=== PATIENT | female | born 1990 | race African-American/Black ===

== ENCOUNTER 2020-11-25 11:06 | Observation (INO) | payer MEDICAID ==
[~2020-11-25] VITALS: Ht 162.6 cm; Wt 54.4 kg
[2020-11-25] MEDS ORDERED: PNV1TABL50 PO (11:38)
[2020-11-25] MEDS ORDERED: DEXT 5%/LACTATED RINGERS 1,000 ML IV SCH (12:00)
[2020-11-25 12:47] LABS: CLARITY URINE CLEAR (CLEAR); COLOR URINE YELLOW (YELLOW); KETONES URINE NEGATIVE (NEGATIVE); LEUKOCYTE ESTERASE URINE 1+ (NEGATIVE); NITRITE URINE NEGATIVE (NEGATIVE); OCCULT BLOOD URINE NEGATIVE (NEGATIVE); PH URINE 8.5 (4.5-8.0); PROTEIN URINE TRACE (NEGATIVE); SPECIFIC GRAVITY URINE 1.023 (1.005-1.030)
[2020-11-25 13:02] LABS: BASOPHILS % 0.6 % (0.0-2.0); HEMATOCRIT. 32.5 % (36.0-48.0); HEMOGLOBIN. 10.8 g/dL (12.0-16.0); LYMPHOCYTES % 13.2 % (20.0-50.0); MEAN CORPUSCULAR HEMOGLOBIN 28.7 pg (28.0-32.0); MEAN CORPUSCULAR VOLUME 86.4 fL (81.0-99.0); MEAN PLATELET VOLUME 7.9 fl (7.4-10.4); MONOCYTES % 3.5 % (2.0-8.0); NEUTROPHILS % 81.7 % (40.0-76.0); PLATELET 328 x1000/uL (130-400); RED BLOOD CELL COUNT 3.76 mill/uL (4.2-5.4); RED CELL DISTRIBUTION WIDTH 14.6 % (11.6-14.6)
[2020-11-25] MEDS ORDERED: CEFAZOLIN 2,000 MG in DEXT 5% WATER 100 ML IV SCH (14:00)
== END 2020-11-25 14:45 | disposition home or self-care (01) ==
LOC: 8 EST LDRP 11:06
PROVIDERS: ADMIT Obstetrics & Gynecology; ATTEND Obstetrics & Gynecology
DX: O46.92 Antepartum hemorrhage, unspecified, second trimester (principal); Z3A.22 22 weeks gestation of pregnancy
CPT/HCPCS: 36415; 59025; 76805; 81003; 85025; 96361; 96365; G0378; J0690; J7060; 96360; 99281

== ENCOUNTER 2021-03-20 22:24 | Observation (INO) | payer MEDICAID, OTHER ==
[~2021-03-20] VITALS: Ht 162.6 cm; Wt 62.6 kg
[~2021-03-20 22:24] MED LIST: PNV1TABL50 PO
== END 2021-03-21 00:10 | disposition home or self-care (01) ==
LOC: 8 EST LDRP 22:24
PROVIDERS: ADMIT Specialist; ATTEND Specialist
DX: O62.9 Abnormality of forces of labor, unspecified (principal); Z3A.39 39 weeks gestation of pregnancy
CPT/HCPCS: 59025; G0378; 99281

== ENCOUNTER 2021-03-29 11:09 | Emergency (ER) | payer OTHER ==
[~2021-03-29] VITALS: Ht 162.6 cm; Wt 59.0 kg
[2021-03-29] MEDS ORDERED: ACETAMINOPHEN WITH CODEINE 300/30MG TABLET PO ONE (11:30)
[2021-03-29 12:15] LABS: CLARITY URINE CLEAR (CLEAR); COLOR URINE DARK YELLOW (YELLOW); KETONES URINE 1+ (NEGATIVE); LEUKOCYTE ESTERASE URINE 2+ (NEGATIVE); NITRITE URINE NEGATIVE (NEGATIVE); OCCULT BLOOD URINE 3+ (NEGATIVE); PH URINE 6.5 (4.5-8.0); PROTEIN URINE 1+ (NEGATIVE); SPECIFIC GRAVITY URINE 1.031 (1.005-1.030)
[2021-03-29 12:28] LABS: *BARBITURATES SCREEN URINE NEGATIVE (NEGATIVE)
[2021-03-29 12:29] LABS: *AMPHETAMINES SCREEN URINE NEGATIVE (NEGATIVE); *BENZODIAZEPINES SCREEN URINE NEGATIVE (NEGATIVE); *COCAINE SCREEN URINE NEGATIVE (NEGATIVE); METHADONE URINE SCREEN NEGATIVE (NEGATIVE); OPIATES URINE SCREEN NEGATIVE (NEGATIVE); PHENCYCLIDINE URINE SCREEN NEGATIVE (NEGATIVE)
[2021-03-29 12:30] LABS: CANNABINOID URINE SCREEN NEGATIVE (NEGATIVE)
[2021-03-29 12:43] LABS: BASOPHILS % 0.5 % (0.0-2.0); EOSINOPHILS % 0.5 % (0.0-5.0); HEMATOCRIT. 31.9 % (36.0-48.0); HEMOGLOBIN. 10.5 g/dL (12.0-16.0); LYMPHOCYTES % 7.7 % (20.0-50.0); MEAN CORPUSCULAR HEMOGLOBIN 28.1 pg (28.0-32.0); MEAN CORPUSCULAR VOLUME 84.8 fL (81.0-99.0); MEAN PLATELET VOLUME 8.2 fl (7.4-10.4); MONOCYTES % 3.5 % (2.0-8.0); NEUTROPHILS % 87.8 % (40.0-76.0); PLATELET 368 x1000/uL (130-400); RED BLOOD CELL COUNT 3.76 mill/uL (4.2-5.4); RED CELL DISTRIBUTION WIDTH 14.8 % (11.6-14.6)
[2021-03-29 12:51] LABS: CHLORIDE 110 mEq/L (98-107)
[2021-03-29 12:54] LABS: INR 0.9; PROTHROMBIN TIME 9.8 sec (9.6-11.0)
[2021-03-29] MEDS ORDERED: IBUPROFEN 600MG TABLET PO ONE (14:00)
[2021-03-29] MEDS ORDERED: CEPH500T MT (14:02)
[2021-03-29] MEDS ORDERED: IBUP-2029 MT (14:03)
[2021-03-29 14:38] VITALS: BP 128/78
== END 2021-03-29 14:39 | disposition home or self-care (01) ==
LOC: ER 11:09
DX: R51.9 Headache, unspecified (principal)
CPT/HCPCS: 36415; 80053; 80305; 81003; 85025; 99284